=== PATIENT | male | born 1935 | race Caucasian/White ===

== ENCOUNTER 2020-11-06 20:52 | Inpatient (IN) | payer MEDICARE, BC ==
[~2020-11-06] VITALS: Ht 185.4 cm; Wt 102.1 kg
[~2020-11-06 20:52] MED LIST: ARICEPT10 MG PO
[2020-11-06 23:02] LABS: HEMOGLOBIN 14.4 gm/dl (14.0-17.5); RED BLOOD COUNT 4.79 M/UL (4.20-5.50); WHITE BLOOD COUNT 9.1 K/UL (4.5-11.0)
[2020-11-06 23:27] LABS: BUN/CREATININE RATIO 24 (0-10)
[2020-11-07] MEDS ORDERED: ZESTORETIC 20-1 EACH PO (05:18)
[2020-11-07] MEDS ORDERED: TOPROL XL 50 MG50 MG PO (05:19)
[2020-11-07] MEDS ORDERED: RISPERDAL 1MG TA1 MG GT (05:20)
[2020-11-07] MEDS ORDERED: NAPROXEN375 MG PO (05:21)
[2020-11-07] MEDS ORDERED: DEPAKOTE SPRIN125 M1 PO ×2 (05:22→18:20)
[2020-11-07] MEDS ORDERED: FLOMAX 0.4 MG0.4 MG PO (05:22)
[2020-11-07] MEDS ORDERED: AMLODIPINE BES2.5 MG PO (05:23)
[2020-11-07] MEDS ORDERED: PRAVACHOL40 MG PO (05:24)
[2020-11-07] MEDS ORDERED: ATIVAN0.5 MG PO (05:24)
[2020-11-08 04:55] LABS: HEMOGLOBIN 14.5 gm/dl (14.0-17.5); RED BLOOD COUNT 4.79 M/UL (4.20-5.50)
[2020-11-08 05:24] LABS: BUN/CREATININE RATIO 21 (0-10)
[2020-11-10 03:08] LABS: HEMOGLOBIN 14.5 gm/dl (14.0-17.5); RED BLOOD COUNT 4.83 M/UL (4.20-5.50); WHITE BLOOD COUNT 9.5 K/UL (4.5-11.0)
[2020-11-10] MEDS ORDERED: CELEXA 20MG TAB20 MG PO (11:04)
== END 2020-11-10 16:05 | DRG 57 ==
LOC: ER1 20:52 → CDU 11-07 02:26 → M/S 11-07 02:26
PROVIDERS: Physician Assistant; ADMIT Internal Medicine
DX: G30.9 Alzheimer's disease, unspecified (principal); I50.32 Chronic diastolic (congestive) heart failure; F05 Delirium due to known physiological condition; I11.0 Hypertensive heart disease with heart failure; F41.1 Generalized anxiety disorder; K57.30 Diverticulosis of large intestine without perforation or abscess without bleeding; Z20.822 Contact with and (suspected) exposure to COVID-19; F02.80 Dementia in other diseases classified elsewhere, unspecified severity, without behavioral disturbance, psychotic disturbance, mood disturbance, and anxiety; N40.0 Benign prostatic hyperplasia without lower urinary tract symptoms; Z66 Do not resuscitate; E78.5 Hyperlipidemia, unspecified
CPT/HCPCS: 36415; 70450; 71045; 74230; 80048; 80053; 82140; 82550; 82553; 82607; 82746; 83036; 83605; 83735; 83874; 83880; 84100; 84439; 84443; 84484; 84550; 85025; 85610; 85652; 85730; 86140; 87040; 92526; 92610; 92611-GN; 93005; 97116; 97161; 99285; J1650; J3486; Q9967; U0002